=== PATIENT | female | born 1950 | race Caucasian/White ===

== ENCOUNTER 2020-10-28 10:07 | Emergency (ER) | payer OTHER ==
[2020-10-28 10:23] VITALS: BP 128/79; PULSE 119; BMI 27.4
[2020-10-28] MEDS ORDERED: DEXAMETHASONE SOD PHOSPHATE 10 MG/1 ML VIAL ONE (10:27)
== END 2020-10-28 12:50 | disposition home or self-care (01) ==
LOC: JER 10:07
DX: U07.1 COVID-19 (principal); R05 Cough
CPT/HCPCS: 71046-TC-FY; 87804; 93005; 93010; 99285-25; C9803; U0003